=== PATIENT | female | born 1980 | race Caucasian/White ===

== ENCOUNTER → 2018-02-27 | Outpatient (CLI) | payer MEDICAID | LOC: FIMAGING 12:49 | PROVIDERS: ATTEND Advanced Practice Midwife | DX: Z36.89 Encounter for other specified antenatal screening (principal); O09.522 Supervision of elderly multigravida, second trimester; Z3A.19 19 weeks gestation of pregnancy; O34.219 Maternal care for unspecified type scar from previous cesarean delivery ==